=== PATIENT | female | born 1965 | race Caucasian/White ===

== ENCOUNTER → 2021-03-05 | Outpatient (CLI) | payer OTHER | LOC: KOH-I 15:28 | DX: R06.02 Shortness of breath (principal) | CPT/HCPCS: 71046 ==

== ENCOUNTER → 2021-03-26 | Outpatient (CLI) | payer OTHER | LOC: KOH-I 13:24 | DX: R91.1 Solitary pulmonary nodule (principal) | CPT/HCPCS: 71250 ==

== ENCOUNTER 2021-06-16 16:55 | Emergency (ER) | payer OTHER | END 2021-06-16 17:25 | disposition home or self-care (01) | LOC: ER1 16:55 | DX: T16.2XXA Foreign body in left ear, initial encounter (principal); F17.210 Nicotine dependence, cigarettes, uncomplicated | CPT/HCPCS: 69200; 99282 ==

== ENCOUNTER 2021-12-18 12:57 | Emergency (ER) | payer OTHER ==
[~2021-12-18] VITALS: Ht 165.1 cm; Wt 86.2 kg
[2021-12-18 14:14] LABS: HEMOGLOBIN 13.8 gm/dl (12.3-15.3); RED BLOOD COUNT 4.37 M/UL (4.00-5.10); WHITE BLOOD COUNT 21.7 K/UL (4.5-11.0)
[2021-12-18 14:46] LABS: BUN/CREATININE RATIO 24 (0-10)
[2021-12-19 03:13] LABS: WHITE BLOOD COUNT 20.9 K/UL (4.5-11.0)
[2021-12-19 03:18] LABS: HEMOGLOBIN 10.4 gm/dl (12.3-15.3); RED BLOOD COUNT 3.42 M/UL (4.00-5.10)
== END 2021-12-19 08:45 | disposition short-term general hospital (02) ==
LOC: ER1 12:57 → CDU 16:40 → ER1 12-19 08:45
PROVIDERS: Emergency Medicine; Physician Assistant
DX: A41.9 Sepsis, unspecified organism (principal); N12 Tubulo-interstitial nephritis, not specified as acute or chronic; E87.1 Hypo-osmolality and hyponatremia; E78.5 Hyperlipidemia, unspecified; F17.210 Nicotine dependence, cigarettes, uncomplicated; Z86.69 Personal history of other diseases of the nervous system and sense organs
CPT/HCPCS: 80053; 81001; 82550; 82553; 82962; 83605; 83690; 83880; 84132; 84484; 85025; 85379; 87040; 87077; 87086; 87186; 93005; 96361; 96365; 96366; 96375; 96376; 99285; J0515; J2185; J2370; J2405; J3370; J7030; J7070; Q9967; U0002